=== PATIENT | female | born 1965 | race African-American/Black ===

== ENCOUNTER 2017-07-06 22:46 | Emergency (ER) | payer SELFPAY ==
[2017-07-06] MEDS ORDERED: Lorazepam 2 MG/ML VIAL ONE (23:24)
[2017-07-06] MEDS ORDERED: Ketorolac Tromethamine 30 MG/ML VIAL ONE (23:24)
== END 2017-07-07 00:07 | disposition home or self-care (01) ==
LOC: ERS 22:46
DX: F43.20 Adjustment disorder, unspecified (principal); I10 Essential (primary) hypertension; D64.9 Anemia, unspecified; F32.9 Major depressive disorder, single episode, unspecified; Z79.899 Other long term (current) drug therapy
CPT/HCPCS: 96372; J1885; J2060

== ENCOUNTER 2017-10-10 12:54 | Emergency (ER) | payer SELFPAY ==
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
== END 2017-10-10 14:22 | disposition home or self-care (01) ==
LOC: ERS 12:54
DX: S16.1XXA Strain of muscle, fascia and tendon at neck level, initial encounter (principal); I10 Essential (primary) hypertension; F32.9 Major depressive disorder, single episode, unspecified; D50.0 Iron deficiency anemia secondary to blood loss (chronic); Z79.899 Other long term (current) drug therapy; V89.2XXA Person injured in unspecified motor-vehicle accident, traffic, initial encounter
CPT/HCPCS: 70450; 72125; 96372

== ENCOUNTER 2018-05-03 07:28 | Emergency (ER) | payer SELFPAY | END 2018-05-03 07:50 | disposition home or self-care (01) | LOC: ERS 07:28 | DX: B02.9 Zoster without complications (principal); I10 Essential (primary) hypertension; D64.9 Anemia, unspecified; D41.9 Neoplasm of uncertain behavior of unspecified urinary organ; F32.9 Major depressive disorder, single episode, unspecified; Z79.899 Other long term (current) drug therapy | CPT/HCPCS: 99283 ==

== ENCOUNTER 2018-08-12 10:10 | Emergency (ER) | payer SELFPAY ==
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
[2018-08-12] MEDS ORDERED: Ibuprofen 200 MG TAB ONE (12:20)
== END 2018-08-12 12:32 | disposition home or self-care (01) ==
LOC: ERS 10:10
DX: S93.402A Sprain of unspecified ligament of left ankle, initial encounter (principal); I10 Essential (primary) hypertension; Z79.899 Other long term (current) drug therapy; W18.30XA Fall on same level, unspecified, initial encounter

== ENCOUNTER 2019-01-11 13:25 | Emergency (ER) | payer SELFPAY ==
--- NOTE | 2019-01-11 15:46 | RAD ---
EXAM: Two views chest PROVIDED CLINICAL HISTORY: Fever and headache. COMPARISON: 10/21/2015 FINDINGS: Cardiac silhouette and pulmonary vasculature are within normal limits. The lungs are clear. No pleura l fluid or pneumothorax apparent. No other interval change. IMPRESSION: No acute cardiopulmonary process.
[2019-01-11 15:48] LABS: #Eosinphils 0.1 thou/uL (0.0-0.7); #Monocytes 0.5 thou/uL (0.11-0.59); #Neutrophils 2.7 thou/uL (1.40-6.50); %Basophils 0.7 % (0.0-1.0); %Eosinophils 1.5 % (0.0-10.0); %Lymphocytes 24.3 % (21.0-51.0); %Monocytes 10.8 % (0.0-10.0); %Neutrophils 62.7 % (42.0-75.0); Hemoglobin 12.6 g/dL (12.0-16.0); Mean Corpuscular HGB CONC 33.1 g/dL (32.0-36.0); Mean Corpuscular Hemoglobin 29.6 pg (27.0-31.0); Mean Corpuscular Volume 89.6 fL (78.0-98.0); Mean Platelet Volume 8.8 fL (7.4-10.4); Platelet Count 277 thou/uL (130-400); Red Blood Cell (RBC) Count 4.25 mill/uL (4.20-5.40); White Blood Cell (WBC) Count 4.2 thou/uL (4.8-10.8)
[2019-01-11 16:02] LABS: ALT (SGPT) 15 U/L (8-55); AST (SGOT) 19 U/L (5-34); Albumin 4.4 g/dL (3.5-5.0); Alkaline Phosphatase 88 U/L (40-150); Anion Gap 15 mmol/L (10-20); BUN (Urea Nitrogen) 9 mg/dL (9.8-20.1); Bilirubin, Total 0.2 mg/dL (0.2-1.2); Calc. Creatinine Clearance 0 mL/min (70-130); Calcium 9.7 mg/dL (7.8-10.44); Carbon Dioxide 26 mmol/L (22-29); Chloride 103 mmol/L (98-107); Estimated GFR-MDRD 45; Globulin 3.7 g/dL (2.4-3.5); Glucose 98 mg/dL (70-105); Protein, Total 8.1 g/dL (6.0-8.3); Sodium 140 mmol/L (136-145)
[2019-01-11] MEDS ORDERED: Albuterol Sulfate 2.5 mg/3 ml Neb ONE (16:40)
[2019-01-11] MEDS ORDERED: Ketorolac Tromethamine 30 MG/ML VIAL ONE (16:58)
[2019-01-11 18:13] LABS: Bilirubin Negative (Negative); Blood, Urine Negative (Negative); Glucose, Urine (Dipstick) Negative (Negative); Leukocyte Negative (Negative); Nitrite Negative (Negative); Protein, Urine (Dipstick) Negative (Neg-Trace); Urobilinogen 0.2 mg/dL (0.2-1.0)
[2019-01-11 18:16] LABS: Clarity Clear (Clear); Specific Gravity, Urine 1.007 (1.002-1.036)
== END 2019-01-11 17:38 | disposition home or self-care (01) ==
LOC: ERS 13:25
DX: B34.9 Viral infection, unspecified (principal); I10 Essential (primary) hypertension; F41.9 Anxiety disorder, unspecified; F32.9 Major depressive disorder, single episode, unspecified; Z79.899 Other long term (current) drug therapy
CPT/HCPCS: 36415; 71046; 80053; 81003; 85025; 87086; 87804; 94640; 96361; 96374; J1885; J7611

== ENCOUNTER 2019-06-28 11:54 | Emergency (ER) | payer SELFPAY ==
[2019-06-28 13:11] LABS: #Basophils 0.1 thou/uL (0.0-0.2); #Eosinphils 0.1 thou/uL (0.0-0.7); #Lymphocytes 1.9 thou/uL (1.20-3.40); #Monocytes 0.3 thou/uL (0.11-0.59); #Neutrophils 2.8 thou/uL (1.40-6.50); %Basophils 1.3 % (0.0-1.0); %Eosinophils 2.8 % (0.0-10.0); %Monocytes 5.6 % (0.0-10.0); %Neutrophils 53.3 % (42.0-75.0); Hemoglobin 12.9 g/dL (12.0-16.0); Mean Corpuscular HGB CONC 34.2 g/dL (32.0-36.0); Mean Corpuscular Hemoglobin 29.9 pg (27.0-31.0); Mean Corpuscular Volume 87.4 fL (78.0-98.0); Mean Platelet Volume 9.2 fL (7.4-10.4); Platelet Count 302 thou/uL (130-400); RBC Distribution Width 13.1 % (11.5-14.5); Red Blood Cell (RBC) Count 4.31 mill/uL (4.20-5.40); White Blood Cell (WBC) Count 5.2 thou/uL (4.8-10.8)
--- NOTE | 2019-06-28 13:20 | RAD ---
SINGLE VIEW CHEST: Date: 06/28/19 COMPARISON: 10/21/15. HISTORY: Anxiety and chest pain. FINDINGS: Single view of the chest shows a normal sized cardiomediastinal silhouette. There is no evidence of c onsolidation, mass, or pleural effusion. The bones are unremarkable. IMPRESSION: No evidence of acute cardiopulmonary disease. POS: [facility]
[2019-06-28 13:33] LABS: ALT (SGPT) 25 U/L (8-55); AST (SGOT) 25 U/L (5-34); Albumin 4.4 g/dL (3.5-5.0); Alkaline Phosphatase 86 U/L (40-110); Anion Gap 13 mmol/L (10-20); BUN (Urea Nitrogen) 12 mg/dL (9.8-20.1); Bilirubin, Total 0.3 mg/dL (0.2-1.2); Calc. Creatinine Clearance 0 mL/min (70-130); Carbon Dioxide 25 mmol/L (22-29); Chloride 103 mmol/L (98-107); Estimated GFR-MDRD 55; Globulin 3.9 g/dL (2.4-3.5); Glucose 97 mg/dL (70-105); Lipase 35 U/L (8-78); Protein, Total 8.3 g/dL (6.0-8.3); Sodium 137 mmol/L (136-145)
--- NOTE | 2019-06-28 16:34 | CT ---
CT angiogram chest with 3-D rendering: HISTORY: Chest pain, anxiety, hypertension FINDINGS: Calcified granuloma in the right lower lobe. 0.4 x 0.6 cm diameter nodule in the right lower lobe. 0.4 x 0.5 cm circumscribed nodule in the lingula. Poorly circumscribed subpleural nodule 0.6 cm in the left lower lobe. No evidence for pleural effusio n. No pericardial effusion. Contrast bolus density within the pulmonary arteries is suboptimal related to poor bolus timing. No e vidence for central pulmonary artery thrombosis. The smaller branches and more peripheral branches are less than optimally imaged. Small hypodensities within the liver, too small to characterize up to 0.9 in size. IMPRESSION: No CT evidence for central pulmonary thrombosis. Smaller branch more peripheral pulmonary arteries ar e poorly evaluated because of decreased bolus. Bilateral pulmonary nodules as above. Small nonspecific liver hypodensities. Code lung nodule
[2019-06-28] MEDS ORDERED: ISOVUE-370 76%-LOCM 1 ML ONE (18:01)
== END 2019-06-28 17:05 | disposition home or self-care (01) ==
LOC: ERS 11:54
DX: R07.89 Other chest pain (principal); D64.9 Anemia, unspecified; I10 Essential (primary) hypertension; F41.9 Anxiety disorder, unspecified; F32.9 Major depressive disorder, single episode, unspecified; Z79.899 Other long term (current) drug therapy
CPT/HCPCS: 36415; 71045; 71275; 80053; 83690; 84484; 85025; 93005; Q9966

== ENCOUNTER 2019-08-30 15:30 | Emergency (ER) | payer SELFPAY ==
[2019-08-30] MEDS ORDERED: Ondansetron ODT 4 MG TAB ONE (16:27)
[2019-08-30] MEDS ORDERED: Lisinopril 10 MG TAB ONE ×2 (16:39→16:42)
== END 2019-08-30 17:42 | disposition home or self-care (01) ==
LOC: ERS 15:30
DX: R11.0 Nausea (principal); I10 Essential (primary) hypertension; Z79.899 Other long term (current) drug therapy
CPT/HCPCS: 99283; Q0162

== ENCOUNTER 2019-10-18 18:37 | Emergency (ER) | payer SELFPAY ==
[2019-10-18] MEDS ORDERED: methylPREDNISolone Sod Succ/PF 125 MG/2 ML VIAL ONE (19:01)
[2019-10-18] MEDS ORDERED: Famotidine 20 MG TAB ONE (19:01)
[2019-10-18] MEDS ORDERED: diphenhydrAMINE 50 MG/ML VIAL ONE (19:01)
== END 2019-10-18 20:32 | disposition home or self-care (01) ==
LOC: ERS 18:37
DX: T63.441A Toxic effect of venom of bees, accidental (unintentional), initial encounter (principal); I10 Essential (primary) hypertension; D64.9 Anemia, unspecified; F41.9 Anxiety disorder, unspecified; F32.9 Major depressive disorder, single episode, unspecified; Z79.899 Other long term (current) drug therapy
CPT/HCPCS: 96372; 99283; J1200; J2930

== ENCOUNTER 2021-04-14 19:04 | Emergency (ER) | payer SELFPAY | END 2021-04-14 20:52 | disposition home or self-care (01) | LOC: ERS 19:04 | DX: S60.051A Contusion of right little finger without damage to nail, initial encounter (principal); I10 Essential (primary) hypertension; X58.XXXA Exposure to other specified factors, initial encounter ==

== ENCOUNTER 2022-04-13 15:05 | Emergency (ER) | payer SELFPAY ==
[2022-04-13] MEDS ORDERED: Acetaminophen 500 MG TAB ONE (15:22)
[2022-04-13] MEDS ORDERED: Ketorolac Tromethamine 30 MG/ML VIAL ONE (15:22)
== END 2022-04-13 17:26 | disposition home or self-care (01) ==
LOC: ERS 15:05
DX: M25.472 Effusion, left ankle (principal); M25.572 Pain in left ankle and joints of left foot; E11.9 Type 2 diabetes mellitus without complications; D64.9 Anemia, unspecified; I10 Essential (primary) hypertension; Z79.899 Other long term (current) drug therapy
CPT/HCPCS: 96372; J1885

== ENCOUNTER 2022-05-11 04:36 | Emergency (ER) | payer SELFPAY | END 2022-05-11 06:32 | disposition home or self-care (01) | LOC: ERS 04:36 | DX: F41.9 Anxiety disorder, unspecified (principal); E11.9 Type 2 diabetes mellitus without complications; I10 Essential (primary) hypertension; D64.9 Anemia, unspecified; Z85.43 Personal history of malignant neoplasm of ovary; Z79.899 Other long term (current) drug therapy | CPT/HCPCS: 99283 ==

== ENCOUNTER 2023-02-10 15:31 | Emergency (ER) | payer BC, SELFPAY | END 2023-02-10 16:05 | disposition home or self-care (01) | LOC: ERS 15:31 | DX: T63.461A Toxic effect of venom of wasps, accidental (unintentional), initial encounter (principal); E11.9 Type 2 diabetes mellitus without complications; I10 Essential (primary) hypertension; Z79.899 Other long term (current) drug therapy | CPT/HCPCS: 99282 ==

== ENCOUNTER 2023-08-05 14:57 | Emergency (ER) | payer BC ==
[2023-08-05] MEDS ORDERED: Ketorolac Tromethamine 30 MG/ML VIAL ONE (16:17)
== END 2023-08-05 16:48 | disposition home or self-care (01) ==
LOC: ERS 14:57
DX: M77.8 Other enthesopathies, not elsewhere classified (principal); E11.9 Type 2 diabetes mellitus without complications; I10 Essential (primary) hypertension
CPT/HCPCS: 96372; J1885

== ENCOUNTER 2023-10-04 12:08 | Emergency (ER) | payer BC, SELFPAY ==
[2023-10-04 12:47] LABS: #Monocytes 0.4 thou/uL (0.11-0.59); #Neutrophils 2.2 thou/uL (1.40-6.50); %Basophils 0.8 % (0.0-1.0); %Eosinophils 0.8 % (0.0-10.0); %Lymphocytes 47.4 % (21.0-51.0); %Monocytes 7.2 % (0.0-10.0); %Neutrophils 43.8 % (42.0-75.0); Hematocrit 37.6 % (36.0-47.0); Hemoglobin 11.9 g/dL (12.0-16.0); Mean Corpuscular HGB CONC 31.6 g/dL (32.0-36.0); Mean Corpuscular Hemoglobin 28.9 pg (27.0-31.0); Mean Corpuscular Volume 91.3 fl (78.0-98.0); Mean Platelet Volume 10.9 fL (7.4-10.4); Platelet Count 311 10x3/uL (130-400); Red Blood Cell (RBC) Count 4.12 mill/uL (4.20-5.40)
[2023-10-04 13:07] LABS: ALT (SGPT) 22 U/L (8-55); AST (SGOT) 24 U/L (5-34); Alkaline Phosphatase 75 U/L (40-110); Anion Gap 12 mmol/L (10-20); BUN (Urea Nitrogen) 10 mg/dL (9.8-20.1); Bilirubin, Total 0.5 mg/dL (0.2-1.2); Calc. Creatinine Clearance 0 mL/min (70-130); Calcium 8.6 mg/dL (7.8-10.44); Carbon Dioxide 26 mmol/L (22-29); Chloride 107 mmol/L (98-107); Estimated GFR 75; Globulin 3.5 g/dL (2.4-3.5); Glucose 107 mg/dL (70-105); Lipase 24 U/L (8-78); Potassium 4.1 mmol/L (3.5-5.1); Protein, Total 7.5 g/dL (6.0-8.3); Sodium 141 mmol/L (136-145)
[2023-10-04 13:08] LABS: Troponin I Less than 0.010 ng/mL (< 0.028)
[2023-10-04] MEDS ORDERED: Acetaminophen 500 MG TAB ONE (13:15)
[2023-10-04] MEDS ORDERED: Dicyclomine 20 MG TAB ONE (13:16)
[2023-10-04] MEDS ORDERED: Meclizine HCl 25 MG TAB ONE (13:16)
== END 2023-10-04 15:15 | disposition home or self-care (01) ==
LOC: ERS 12:08
DX: R11.2 Nausea with vomiting, unspecified (principal); I10 Essential (primary) hypertension; E11.9 Type 2 diabetes mellitus without complications; Z79.899 Other long term (current) drug therapy
CPT/HCPCS: 36415; 80053; 83690; 84484; 85025; 93005; 96360; 96361

== ENCOUNTER 2023-12-23 12:52 | Emergency (ER) | payer BC, OTHER ==
[2023-12-23] MEDS ORDERED: Metoclopramide HCl 10 MG (2 mL) VIAL ONE (13:26)
[2023-12-23] MEDS ORDERED: diphenhydrAMINE 50 MG/ML VIAL ONE (13:26)
[2023-12-23 14:20] LABS: #Eosinphils 0.1 thou/uL (0.0-0.7); #Monocytes 0.3 thou/uL (0.11-0.59); #Neutrophils 1.8 thou/uL (1.40-6.50); %Basophils 0.6 % (0.0-1.0); %Eosinophils 2.2 % (0.0-10.0); %Lymphocytes 53.7 % (21.0-51.0); %Monocytes 6.2 % (0.0-10.0); %Neutrophils 37.1 % (42.0-75.0); Hematocrit 38.7 % (36.0-47.0); Hemoglobin 12.5 g/dL (12.0-16.0); Mean Corpuscular HGB CONC 32.3 g/dL (32.0-36.0); Mean Corpuscular Hemoglobin 29.1 pg (27.0-31.0); Mean Platelet Volume 11.3 fL (7.4-10.4); Platelet Count 335 10x3/uL (130-400); RBC Distribution Width 14.4 % (11.5-14.5)
[2023-12-23 14:23] LABS: ALT (SGPT) 31 U/L (8-55); AST (SGOT) 25 U/L (5-34); Albumin 4.2 g/dL (3.5-5.0); Alkaline Phosphatase 79 U/L (40-110); Anion Gap 13 mmol/L (10-20); BUN (Urea Nitrogen) 13 mg/dL (9.8-20.1); Bilirubin, Total 0.4 mg/dL (0.2-1.2); Calc. Creatinine Clearance 0 mL/min (70-130); Calcium 9.4 mg/dL (7.8-10.44); Carbon Dioxide 25 mmol/L (22-29); Chloride 106 mmol/L (98-107); Estimated GFR 57; Globulin 3.7 g/dL (2.4-3.5); Glucose 114 mg/dL (70-105); Magnesium 2.3 mg/dL (1.6-2.6); Potassium 3.6 mmol/L (3.5-5.1); Protein, Total 7.9 g/dL (6.0-8.3); Sodium 140 mmol/L (136-145); Troponin I Less than 0.010 ng/mL (< 0.028)
[2023-12-23 14:23] LABS: Bacteria/HPF 4+ HPF (None Seen); Bilirubin Negative (Negative); Blood, Urine Negative (Negative); CAUTI Indications for Culture Pelvic or flank pain; Clarity Clear (Clear); Glucose, Urine (Dipstick) Normal (Negative); Ketone, Urine Negative (Negative); Leukocyte 75 Leu/uL (Negative); Nitrite Negative (Negative); Protein, Urine (Dipstick) Negative (Neg-Trace); RBC/HPF 0-3 HPF (0-3); Squamous Epithelial 0-3 HPF (0-3); Urobilinogen Normal mg/dL (Less than 2); WBC/HPF 0-3 HPF (0-3); pH, Urine 5.5 (5.0-9.0)
[2023-12-23 14:25] LABS: Urine Culture Reflex No No
== END 2023-12-23 15:30 | disposition home or self-care (01) ==
LOC: ERS 12:52
DX: R51.9 Headache, unspecified (principal); F43.0 Acute stress reaction; E11.9 Type 2 diabetes mellitus without complications; I10 Essential (primary) hypertension; Z79.899 Other long term (current) drug therapy
CPT/HCPCS: 36415; 70450; 71045; 80053; 81001; 83735; 84484; 85025; 93005; 96361; 96365; 96375; J1200; J2765

== ENCOUNTER 2024-03-07 13:01 | Emergency (ER) | payer BC, OTHER, SELFPAY ==
[2024-03-07] MEDS ORDERED: Ibuprofen 800 MG TAB ONE (13:48)
[2024-03-07] MEDS ORDERED: Acetaminophen 500 MG TAB ONE (13:48)
[2024-03-07] MEDS ORDERED: Losartan 25 MG TAB ONE (13:49)
== END 2024-03-07 14:53 | disposition home or self-care (01) ==
LOC: ERS 13:01
DX: T63.461A Toxic effect of venom of wasps, accidental (unintentional), initial encounter (principal); I10 Essential (primary) hypertension; E11.9 Type 2 diabetes mellitus without complications; Z55.6 Problems related to health literacy
CPT/HCPCS: 99283

== ENCOUNTER 2025-07-09 10:48 | Outpatient (CLI) | payer OTHER | END 2025-07-09 10:49 | disposition home or self-care (01) | LOC: ULT 10:48 | PROVIDERS: ATTEND Internal Medicine | DX: N18.31 Chronic kidney disease, stage 3a (principal) | CPT/HCPCS: 76770 ==